=== PATIENT | male | born 1990 | race African-American/Black ===

== ENCOUNTER → 2017-02-15 | Outpatient (CLI) | payer OTHER ==
--- NOTE | 2017-02-15 11:18 | REP ---
LUMBOSACRAL SPINE: Five views lumbosacral spine are performed. 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 Four lumbar type vertebral bodies are present. This indicates a transitional lumbar vertebral body. There is no compression fracture or malalignment with straightening and slight reversal of the normal lumbar lordosis. Disc spaces are well preserved. Posterior elements are intact. There is slight curvature toward the left. IMPRESSION: Four lumbar type vertebral bodies present indicating a transitional lumbar vertebral body. Reversal of the normal lumbar lordosis with slight curvature toward the left. Signed by Avery Rothman MD 02/15/2017 02:23 P
== END ==
LOC: M RAD 09:18
PROVIDERS: ATTEND Surgery
DX: M54.5 Low back pain (principal)